=== PATIENT | male | born 1940 | race Caucasian/White ===

== ENCOUNTER 2017-03-03 16:23 | Emergency (ER) | payer MEDICARE, MEDICAID ==
--- NOTE | 2017-03-03 20:53 | C.PDOC ---
History Of Present Illness 76 year old patient, with a history of hypertension, presents to the ED complaining of lower left back/ rib pain for the past week. Patient's family member translated. Patient was sitting on an electric skateboard when it started moving and pt crashed into a dresser at home hitting his left lower back. The pain is exacerbated by coughing and sneezing. He has been taking 1 tab of OTC Naproxen with mild relief. He last took Naproxen this morning. Patient denies abdominal pain, numbness, weakness, nausea, vomiting, chest pain , shortness of breath, dizziness, loss of consciousness or head injury. Time Seen by Provider: 03/03/17 19:44 Chief Complaint (Nursing): Back Pain History Per: Patient, Family History/Exam Limitations: no limitations Onset/Duration Of Symptoms: Other (1 week) Current Symptoms Are (Timing): Still Present Quality Of Discomfort: "Pain" Severity: Mild Pain Scale Rating Of: 3 Previous Symptoms: None Associated Symptoms: None Exacerbating Factor(s): Other (coughing and sneezing) Recent travel outside of the [place]: No Past Medical History Reviewed: Historical Data, Nursing Documentation, Vital Signs Vital Signs: Last Vital Signs Temp 98 F 03/03/17 21:09 Pulse 75 03/03/17 21:09 Resp 20 03/03/17 21:09 BP 130/70 03/03/17 21:09 Pulse Ox 99 03/03/17 22:52 - Medical History PMH: HTN - [facility] Procedures TETANUS TOXOID ADMINIST (06/11/14) Family History: States: Unknown Family Hx - Social History Hx Tobacco Use: No Hx Alcohol Use: No Hx Substance Use: No - Immunization History Hx Tetanus Toxoid Vaccination: Yes Hx Influenza Vaccination: Yes Hx Pneumococcal Vaccination: No Review Of Systems Except As Marked, All Systems Reviewed And Found Negative. Cardiovascular: Negative for: Chest Pain Respiratory: Negative for: Shortness of Breath Gastrointestinal: Negative for: Nausea, Vomiting, Abdominal Pain Musculoskeletal: Positive for: Other (left side rib pain). Negative for: Back Pain Neurological: Negative for: Weakness, Numbness, Dizziness, Other (loss of consciousness) Physical Exam - Physical Exam Appears: Non-toxic, No Acute Distress Skin: Warm, Dry Head: Atraumatic, Normacephalic Eye(s): bilateral: Normal Inspection, PERRL, EOMI Neck: Normal ROM, No Step Off Deformity, Supple Chest: Symmetrical, No Deformity, Tenderness (posterior aspect of the left lower intercostal area), No Other (crepitus, deformities) Cardiovascular: Rhythm Regular Respiratory: Normal Breath Sounds, No Rales, No Rhonchi, No Wheezing Back: Normal Inspection, No CVA Tenderness, No Vertebral Tenderness, No Paraspinal Tenderness Extremity: Normal ROM Extremity: Bilateral: Atraumatic, Normal Color And Temperature Neurological/Psych: Oriented x3, Normal Motor, Normal Sensation Gait: Steady ED Course And Treatment O2 Sat by Pulse Oximetry: 99 (RA) Pulse Ox Interpretation: Normal - Other Rad rib/chest x-ray X-Ray: Interpreted by Me, Viewed By Me Interpretation: no fractures or dislocations Progress Note: Plan: -Ribs and chest x-ray. -Toradol Reevaluation Time: 20:40 Reassessment Condition: Improved Disposition Counseled Patient/Family Regarding: Diagnosis, Need For Followup, Rx Given - Disposition Referrals: Carmelo Oseguera MD [Non-Staff] - Disposition: HOME/ ROUTINE Disposition Time: 20:56 Condition: GOOD Additional Instructions: Please follow up with PMD Take prescribed meds Return to ER if difficulty breathing, chest pain or worse Prescriptions: traMADol [Ultram] 50 mg PO TID #30 tab Instructions: Rib Contusion (ED) - Clinical Impression Clinical Impression: Contusion of rib on left side, Contusion, back - PA / REGULATORY COORDINATOR / Resident Statement MD/DO has reviewed & agrees with the documentation as recorded. - Scribe Statement The provider has reviewed the documentation as recorded by the Scribe Candie Hernandez All medical record entries made by the Scribe were at my direction and personally dictated by me. I have reviewed the chart and agree that the record accurately reflects my personal performance of the history, physical exam, medical decision making, and the department course for this patient. I have also personally directed, reviewed, and agree with the discharge instructions and disposition.
[2017-03-03 21:10] VITALS: BP 130/70; PULSE 75; RESP 20; TEMP 98
[2017-03-03 22:52] VITALS: O2SAT 99
--- NOTE | 2017-03-04 10:13 | RAD ---
PROCEDURE: Radiographs of the Chest and Left Ribs. HISTORY: pain, fall, left post ribs COMPARISON: None available. TECHNIQUE: Frontal radiograph of the chest and multiple oblique radiographs of the left ribs were obtained. FINDINGS: LEFT RIBS: No fracture or focal lesion visualized. LUNGS: Clear. PLEURA: No pneumothorax or pleural fluid. CARDIOVASCULAR: Normal sized heart. No pulmonary vascular congestion. OTHER FINDINGS: None. IMPRESSION: Unremarkable radiographs of the chest and left ribs. No left rib fracture.
== END 2017-03-03 21:10 | disposition home or self-care (01) ==
LOC: C.ER 16:23
DX: S20.212A Contusion of left front wall of thorax, initial encounter (principal); S30.0XXA Contusion of lower back and pelvis, initial encounter; W22.8XXA Striking against or struck by other objects, initial encounter; Y93.89 Activity, other specified; Y92.009 Unspecified place in unspecified non-institutional (private) residence as the place of occurrence of the external cause
CPT/HCPCS: 71101; 96372; 99283; J1885

== ENCOUNTER 2018-01-02 01:45 | Emergency (ER) | payer MEDICARE, MEDICAID ==
[2018-01-02 02:11] VITALS: RESP 20
[2018-01-02 02:36] LABS: BASO % 0.2 % (0.0-2.0); EOS % 0.2 % (0.0-4.0); HEMOGLOBIN 14.9 g/dL (12.0-18.0); LYMPH # 1.1 K/uL (1.0-4.3); LYMPH % 9.5 % (20.0-40.0); MEAN CELL VOLUME 86.4 fL (80.0-94.0); MEAN CORPUSCULAR HEMOGLOBIN 31.4 pg (27.0-31.0); MEAN CORPUSCULAR HGB CONC 36.3 g/dL (33.0-37.0); MEAN PLATELET VOLUME 7.1 fL (7.2-11.7); MONO # 0.4 K/uL (0.0-0.8); MONO % 3.4 % (0.0-10.0); NEUT # 10.1 K/uL (1.8-7.0); NEUT % 86.7 % (50.0-75.0); NRBC % 0.1 % (0.0-2.0); PLATELET COUNT 325 K/uL (130-400); RBC 4.74 Mil/uL (4.40-5.90); RED CELL DISTRIBUTION WIDTH 13.2 % (11.5-14.5); WHITE BLOOD COUNT 11.6 K/uL (4.8-10.8)
[2018-01-02] MEDS ORDERED: Morphine 4 MG/ML VIAL ONE (02:44)
[2018-01-02 02:48] LABS: ALB/GLOB RATIO 1.2 (1.0-2.1); ALBUMIN 4.3 g/dL (3.5-5.0); ALT/SGPT 32 U/L (21-72); AST/SGOT 23 U/L (17-59); BLOOD UREA NITROGEN 19 mg/dL (9-20); CALCIUM 8.9 mg/dl (8.6-10.4); GFR AFRICAN-AMERICAN > 60; GFR NON-AFRICAN AMERICAN > 60
[2018-01-02 02:52] LABS: PROTHROMBIN TIME 10.7 SECONDS (9.7-12.2)
[2018-01-02 02:55] LABS: PH,URINE 8.5 (5.0-8.0); URINE BILIRUBIN NEGATIVE (NEGATIVE); URINE BLOOD NEGATIVE (NEGATIVE); URINE CLARITY Turbid (Clear); URINE COLOR YELLOW (YELLOW); URINE GLUCOSE (UA) 250 mg/dL (Normal); URINE LEUKOCYTE ESTERASE NEGATIVE Leu/uL (Negative); URINE NITRATE NEGATIVE (NEGATIVE); URINE PROTEIN TRACE mg/dL (NEGATIVE); URINE UROBILINOGEN 0.2 mg/dL (0.2-1.0)
[2018-01-02 03:01] LABS: URINE AMORPHOUS SEDIMENT OCC /ul (<OCC); URINE BACTERIA RARE (<OCC)
[2018-01-02] MEDS ORDERED: Iodixanol 320 mg/ml 150 ml Bottle IV ONE (03:15)
[2018-01-02 03:56] LABS: BANDS 1 % (0-2); LYMPHOCYTE 12 % (20-40); MONOCYTE 3 % (0-10); NEUTROPHIL 83 % (50-75); PLATELET ESTIMATE NORMAL (NORMAL); REACTIVE LYMPHOCYTES 1 % (0-0); TOTAL CELLS COUNTED 100
--- NOTE | 2018-01-02 04:36 | CT ---
EXAM: CT Chest Without and With Intravenous Contrast CLINICAL HISTORY: 77 years old, male; Pain; Chest pain; Abdominal pain; Other: Chest / upper abd pain; Additional info: Chest/upper abdominal pain TECHNIQUE: Axial computed tomography images of the chest without and with intravenous contrast during the arterial phase of enhancement. All CT scans at this facility use one or more dose reduction techniques, viz.: automated exposure control; ma/kV adjustment per patient size (including targeted exams where dose is matched to indication; i.e. head); or iterative reconstruction technique. Coronal and sagittal reformatted images were created and reviewed. CONTRAST: 100 mL of [id number] administered intravenously. COMPARISON: No relevant prior studies available. FINDINGS: Pulmonary arteries: No pulmonary embolism. Aorta: Mild atherosclerotic disease. No dissection. No aneurysm. Lungs: Mild atelectasis/scarring. No consolidation. Pleural space: No significant effusion. No pneumothorax. Heart: No cardiomegaly. No significant pericardial effusion. Mediastinum: Probable small hiatal hernia. Bones/joints: Degenerative changes of spine. No acute fracture. Soft tissues: Minimal gynecomastia. Lymph nodes: No pathologically enlarged lymph nodes. Upper abdomen: Elevated RIGHT hemidiaphragm. IMPRESSION: 1. No aortic dissection. 2. Incidental/non-acute findings are described above. EXAM: CT Abdomen and Pelvis Without and With Intravenous Contrast CLINICAL HISTORY: 77 years old, male; Pain; Chest pain; Abdominal pain; Other: Chest / upper abd pain; Additional info: Chest/upper abdominal pain TECHNIQUE: Axial computed tomography images of the abdomen and pelvis without and with intravenous contrast during the arterial phase of enhancement. All CT scans at this facility use one or more dose reduction techniques, viz.: automated exposure control; ma/kV adjustment per patient size (including targeted exams where dose is matched to indication; i.e. head); or iterative reconstruction technique. Coronal and sagittal reformatted images were created and reviewed. CONTRAST: 100 mL of administered intravenously. COMPARISON: No relevant prior studies available. FINDINGS: VASCULATURE: Aorta: Minimal atherosclerotic disease. No dissection. No aneurysm. Celiac trunk and mesenteric arteries: No occlusion or significant stenosis. Renal arteries: No occlusion or significant stenosis. Iliac arteries: Mild atherosclerotic disease. No occlusion or significant stenosis. ABDOMEN: Liver: Unremarkable. No mass. Gallbladder and bile ducts: Calcified gallstones. Borderline enlarged common bile duct. Pancreas: Unremarkable. No ductal dilation. No mass. Spleen: Unremarkable. No splenomegaly. Adrenals: Unremarkable. No mass. Kidneys and ureters: Few probable LEFT renal cysts. No hydronephrosis. Stomach and bowel: Segmental areas of probable underdistention of colon. No definite mural thickening. No obstruction. Appendix: Normal caliber. No inflammation. PELVIS: Bladder: Unremarkable. No stones. No mass. Reproductive: Mildly enlarged prostate. ABDOMEN and PELVIS: Intraperitoneal space: Unremarkable. No significant fluid collection. No free air. Bones/joints: Degenerative changes of spine. No acute fracture. No dislocation. Soft tissues: Unremarkable. Lymph nodes: No pathologically enlarged lymph nodes.
--- NOTE | 2018-01-02 04:50 | C.PDOC ---
History Of Present Illness 77 year old male presents to the ER with a complaint of chest pain and epigastric pain since approximately 19:00. Patient reports the pain is constant and is not associated with SOB, vomiting, diarrhea, cough, or fever. Patient states he was started on protonix by PMD approximately 1 week ago with no relief. Time Seen by Provider: 01/02/18 01:51 Chief Complaint (Nursing): Chest Pain History Per: Patient History/Exam Limitations: no limitations Onset/Duration Of Symptoms: Hrs Current Symptoms Are (Timing): Still Present Modifying Factors: None Exacerbating Factors: None Alleviating Factors: None Recent travel outside of the [place]: No Past Medical History Reviewed: Historical Data, Nursing Documentation, Vital Signs Vital Signs: Last Vital Signs Temp 97.7 F 01/02/18 01:56 Pulse 79 01/02/18 01:56 Resp 20 01/02/18 01:56 BP 135/75 01/02/18 01:56 Pulse Ox 96 01/02/18 05:03 - Medical History PMH: HTN - [facility] Procedures TETANUS TOXOID ADMINIST (06/11/14) Family History: States: Unknown Family Hx - Social History Hx Tobacco Use: No Hx Alcohol Use: No Hx Substance Use: No - Immunization History Hx Tetanus Toxoid Vaccination: Yes Hx Influenza Vaccination: Yes Hx Pneumococcal Vaccination: No Review Of Systems Except As Marked, All Systems Reviewed And Found Negative. Cardiovascular: Positive for: Chest Pain Gastrointestinal: Positive for: Abdominal Pain Physical Exam - Physical Exam Appears: Non-toxic, Other (Comfortable) Skin: Normal Color, Warm, Dry Head: Atraumatic, Normacephalic Eye(s): bilateral: Normal Inspection Oral Mucosa: Moist Chest: Symmetrical, No Tenderness Cardiovascular: Rhythm Regular Respiratory: Normal Breath Sounds, No Rales, No Rhonchi, No Wheezing Gastrointestinal/Abdominal: Soft, No Tenderness Extremity: No Pedal Edema Neurological/Psych: Oriented x3, Normal Speech ED Course And Treatment - Laboratory Results Result Diagrams: 01/02/18 02:33 01/02/18 02:33 ECG: Interpreted By Me, Viewed By Me ECG Rhythm: Sinus Rhythm Interpretation Of ECG: Normal axis, no acute ST/T wave changes Rate From EC O2 Sat by Pulse Oximetry: 96 (room air) Pulse Ox Interpretation: Normal - CT Scan/US CTA CHEST/ABD/PELVIS Other Rad Studies (CT/US): Read By Radiologist, Radiology Report Reviewed CT/US Interpretation: EXAM: CT Chest Without and With Intravenous Contrast. CLINICAL HISTORY: 77 years old, male; Pain; Chest pain; Abdominal pain; Other: Chest / upper abd pain; Additional info: Chest/upper abdominal pain. TECHNIQUE : Axial computed tomography images of the chest without and with intravenous contrast during the. arterial phase of enhancement. All CT scans at this facility use one or more dose reduction. techniques, viz.: automated exposure control; ma/kV adjustment per patient size (including targeted. exams where dose is matched to indication; i.e. head); or iterative reconstruction technique. Coronal and sagittal reformatted images were created and reviewed. CONTRAST: 100 mL of [id number] administered intravenously. COMPARISON: No relevant prior studies available. FINDINGS: Pulmonary arteries: No pulmonary embolism. Aorta: Mild atherosclerotic disease. No dissection. No aneurysm. Lungs: Mild atelectasis/scarring. No consolidation. Pleural space: No significant effusion. No pneumothorax. Heart: No cardiomegaly. No significant pericardial effusion. Mediastinum: Probable small hiatal hernia. Bones/joints : Degenerative changes of spine. No acute fracture. [facility]. [employer] [facility]. Final Radiology Report [id number]. Name: JOURDAN KEEN Age: 77Years M Date: 01/02/2018. SSN: [id number] : 1940. Study: CTA CHEST Requesting Physician: ISMA ENRIQUEZ. Images: [id number]. Addl Studies: [id number] - CTA ABDOMEN/ PELVIS (0). Provided Clinical History: CHEST/UPPER ABDOMINAL PAIN. CONFIDENTIALITY STATEMENT. This transmission is confidential and is intended to be a privileged communication. It is intended only for the use of the addressee. Access to this. message by anyone else is unauthorized. If you are not the intended recipient, any disclosure, copying, distribution or any action taken, or omitted to. be taken in reliance on it is prohibited and may be unlawful. If you received this communication in error, please notify us by telephone, so that return. of this document to us can be arranged. Page 2 of 4. Soft tissues: Minimal gynecomastia. Lymph nodes: No pathologically enlarged lymph nodes. Upper abdomen: Elevated RIGHT hemidiaphragm. IMPRESSION : 1. No aortic dissection. 2. Incidental/non-acute findings are described above. . EXAM: CT Abdomen and Pelvis Without and With Intravenous Contrast. CLINICAL HISTORY: 77 years old, male; Pain; Chest pain; Abdominal pain; Other: Chest / upper abd pain; Additional info: Chest/upper abdominal pain. TECHNIQUE: Axial computed tomography images of the abdomen and pelvis without and with intravenous contrast. during the arterial phase of enhancement. All CT scans at this facility use one or more dose. reduction techniques, viz.: automated exposure control; ma/kV adjustment per patient size (including. targeted exams where dose is matched to indication; i.e. head); or iterative reconstruction technique. Coronal and sagittal reformatted images were created and reviewed. CONTRAST: 100 mL of [id number] administered intravenously. COMPARISON: [facility]. [employer] Radiology [facility]. Final Radiology Report [id number]. Name: JOURDAN KEEN Age: 77Years M Date: 01/02/2018. SSN: [id number] : 1940. Study: CTA CHEST Requesting Physician: ISMA ENRIQUEZ. Images: [id number]. Addl Studies: [id number] - CTA ABDOMEN/PELVIS (0). Provided Clinical History: CHEST/UPPER ABDOMINAL PAIN. CONFIDENTIALITY STATEMENT. This transmission is confidential and is intended to be a privileged communication. It is intended only for the use of the addressee. Access to this. message by anyone else is unauthorized. If you are not the intended recipient, any disclosure, copying, distribution or any action taken, or omitted to. be taken in reliance on it is prohibited and may be unlawful. If you received this communication in error, please notify us by telephone, so that return. of this document to us can be arranged. Page 3 of 4. No relevant prior studies available. FINDINGS: VASCULATURE: Aorta: Minimal atherosclerotic disease. No dissection. No aneurysm. Celiac trunk and mesenteric arteries: No occlusion or significant stenosis. Renal arteries: No occlusion or significant stenosis. Iliac arteries: Mild atherosclerotic disease. No occlusion or significant stenosis. ABDOMEN: Liver: Unremarkable. No mass. Gallbladder and bile ducts: Calcified gallstones. Borderline enlarged common bile duct. Pancreas: Unremarkable. No ductal dilation. No mass. Spleen : Unremarkable. No splenomegaly. Adrenals: Unremarkable. No mass. Kidneys and ureters: Few probable LEFT renal cysts. No hydronephrosis. Stomach and bowel: Segmental areas of probable underdistention of colon. No definite mural. thickening. No obstruction. Appendix: Normal caliber. No inflammation. PELVIS : Bladder: Unremarkable. No stones. No mass. Reproductive: Mildly enlarged prostate. ABDOMEN and PELVIS: Intraperitoneal space: Unremarkable. No significant fluid collection. No free air. Bones/joints: Degenerative changes of spine. No acute fracture. No dislocation. Soft tissues: Unremarkable. [facility]. [employer] Radiology [facility]. Final Radiology Report [id number]. Name: JOURDAN KEEN Age: 77Years M Date: 01/02/2018. SSN: [id number] : 1940. Study: CTA CHEST Requesting Physician: ISMA ENRIQUEZ. Images: [id number]. Addl Studies: [id number] - CTA ABDOMEN/PELVIS (0). Provided Clinical History: CHEST/UPPER ABDOMINAL PAIN. CONFIDENTIALITY STATEMENT. This transmission is confidential and is intended to be a privileged communication. It is intended only for the use of the addressee. Access to this. message by anyone else is unauthorized. If you are not the intended recipient, any disclosure, copying, distribution or any action taken, or omitted to. be taken in reliance on it is prohibited and may be unlawful. If you received this communication in error, please notify us by telephone, so that return. of this document to us can be arranged. Page 4 of 4. Lymph nodes: No pathologically enlarged lymph nodes. IMPRESSION: 1. No aortic dissection. 2. Incidental/non-acute findings are described above. Thank you for allowing us to participate in the care of your patient. Dictated and Authenticated by: Rg Rutledge MD. 01/02/2018 4:35 AM Eastern Time ([place] & [place]) Progress Note: Blood work, EKG, urinalysis, and CTA ordered. Morphine administered. Disposition Counseled Patient/Family Regarding: Studies Performed, Diagnosis, Need For Followup - Disposition Referrals: Shaik Oseguera MD [Staff Provider] - Disposition: HOME/ ROUTINE Disposition Time: 05:10 Condition: STABLE Additional Instructions: FOLLOW UP WITH DR OSEGUERA IN 1-2 DAYS RETURN TO ER IMMEDIATELY IF SYMPTOMS WORSEN Instructions: Epigastric Pain (ED) Forms: [employer] (French) Print Language: PORTUGUESE - POA Present On Arrival: None - Clinical Impression Clinical Impression: Epigastric pain - Scribe Statement The provider has reviewed the documentation as recorded by the Scribe Darrick Daniels All medical record entries made by the Scribe were at my direction and personally dictated by me. I have reviewed the chart and agree that the record accurately reflects my personal performance of the history, physical exam, medical decision making, and the department course for this patient. I have also personally directed, reviewed, and agree with the discharge instructions and disposition.
[2018-01-02] MEDS ORDERED: Potassium Chloride 20 mEq ER Tab PO STA (05:41)
[2018-01-02] MEDS ORDERED: Potassium Chloride 20 mEq ER Tab PO ONE (05:48)
[2018-01-02 05:53] VITALS: BP 128/75; PULSE 76; TEMP 98.6; O2SAT 97
--- NOTE | 2018-01-04 19:41 | CARD ---
APPROVED REPORT EKG Measurement Heart [id number] <Conclusion> Sinus rhythm with premature atrial complexes Nonspecific ST abnormality Abnormal ECG
== END 2018-01-02 05:52 | disposition home or self-care (01) ==
LOC: C.ER 01:45
DX: R10.13 Epigastric pain (principal); I10 Essential (primary) hypertension
CPT/HCPCS: 71270; 74175; 80053; 81001; 82550; 82553; 84484; 85025; 85610; 85730; 93005; 96374; 99285; J2270; Q9967